=== PATIENT | female | born 1990 | race Caucasian/White ===

== ENCOUNTER 2017-03-08 16:28 | Inpatient (IN) | payer BC ==
[2017-03-08 16:56] VITALS: BMI 29.5
[2017-03-08] MEDS: Lactated Ringer's 1,000 ML IV SCH (17:00)
[2017-03-08 17:37] VITALS: BP 123/76; PULSE 102; RESP 18; TEMP 98.3
--- NOTE | 2017-03-08 18:57 | OBADHP ---
Datetime: 03/08/2017 17:53 Admit Comment, IP Provider: iup at 36+weeks uneventful care admitted with jose angel of 2 no evidence of ru ptured membrane will insert cervidil to help stat contraction Pelvic Type - PN: Adequate Extremities - PN: Normal Abdomen - PN: Normal Back - PN: Normal Breast - PN: Normal Lungs - PN: Normal Heart - PN: Normal Thyroid - PN: Normal Neurologic - PN: Normal HEENT - PN: Normal General - PN: Normal Presentation-Admit: Vertex FHR - Baseline A Provider: 150 Membranes, Provider: Intact Contraction Comments Provider: irregular (Annotations: Data stored by CPN on behalf of user) Gestation - Est Wks by US: 36+ Vital Signs Provider: Reviewed; Within Normal Limits NICHD Variability Prov Fetus A: Moderate 6-25bpm NICHD Accel Fetus A IP Provider: 10X10 FHR Category Provider Fetus A: Category I NICHD Decel Fetus A IP Provider: None Dilatation, Provider: closed Effacement, Provider: long Station, Provider: -3 Genitourinary Exam: Normal DTRs - PN: Normal IP Adm Impression: , intrauterine ; No Active Labor; Intact Membranes IP Admit Plan: Admit to unit; Initiate labor induction protocol
[2017-03-08 19:25] LABS: BASO # 0.1 K/uL (0.0-0.2); BASO % 0.5 % (0.0-2.0); EOS # 0.4 K/uL (0.0-0.7); EOS % 3.5 % (0.0-4.0); HEMATOCRIT 35.7 % (34.0-47.0); LYMPH % 18.9 % (20.0-40.0); MEAN CELL VOLUME 84.5 fl (81.0-99.0); MEAN CORPUSCULAR HGB CONC 33.1 g/dL (33.0-37.0); MONO % 9.4 % (0.0-10.0); NEUT # 7.2 K/uL (1.8-7.0); NEUT % 67.7 % (50.0-75.0); NRBC % 0.1 % (0.0-0.0); RED CELL DISTRIBUTION WIDTH 13.9 % (11.5-14.5); WHITE BLOOD COUNT 10.7 K/uL (4.8-10.8)
[2017-03-08] MEDS ORDERED: Ampicillin 2 GM in Sodium Chloride 0.9% 100 ML IVPB ONE (23:05)
[2017-03-09] MEDS ORDERED: Fentanyl/Bupivacaine HCl 250 ML EPI ONE (00:34)
[2017-03-09] MEDS: Lactated Ringer's 1,000 ML IV SCH ×2 (06:34→08:03)
[2017-03-09] MEDS ORDERED: Penicillin G 5 Million Unit Vial IVPB ONE (07:44)
[2017-03-09] MEDS ORDERED: Penicillin G Potassium 5 MU in Sodium Chloride 0.9% 50 ML IVPB ONE (07:45)
[2017-03-09] MEDS ORDERED: Oxytocin 30 units/LR 500ML 30 U/500 ML BAG IV ONE ×2 (12:02→12:21)
[2017-03-09] MEDS ORDERED: AMPicillin 1 GM in Sodium Chloride 0.9% 100 ML IVPB SCH (12:05)
[2017-03-09] MEDS ORDERED: Oxytocin 30 units/LR 500ML 30 U/500 ML BAG IV SCH (12:20)
[2017-03-09] MEDS ORDERED: Oxycodone/Acetaminophen 5/325 mg Tab PO PRN ×2 (14:21)
--- NOTE | 2017-03-09 14:32 | OBDS ---
DELIVERY PERSONNEL Delivery Doctor: Ashley Trujillo MD Intelligence Agent: Trei Schmidt RN Anesthesiologist: Talita Nicholson MD MATERNAL INFORMATION Delivery Anesthesia: Epidural Medications in Delivery: pitocin in labor and after placenta Estimated Blood Loss (ml): 250 Placenta Cultured: No Maternal Complications: None; Other Other Maternal Complications: oligo jose angel 2 Provider Comments: delivery oflive baby girl 9/9 clear fluid 1loose nuchal cord midline episio sandra and repair LABOR SUMMARY EDC: 04/03/2017 00:00 No. Babies in Womb: 1 Attempted: No Labor Anesthesia: Epidural LABOR INFORMATION Reason for Induction: Oligohydramnios Onset of Labor: 03/09/2017 12:00 Complete Dilatation: 03/09/2017 07:30 Cervical Ripening Agents: Cervidil (Annotations: cervidil inserted by dr trujillo) Oxytocin: cervidi/ pitocin Group B Beta Strep: Not Done Antibiotics # of Doses: michael 5m at 0755am pen. g 2.5 12:10 pm Steroids Given: None Reason Steroids Not Administered: Not Applicable MEMBRANES Membranes Rupture Method: Spontaneous Rupture of Membranes: 03/09/2017 08:30 Length of Rupture (hrs): 4.85 Amniotic Fluid Color: Clear Amniotic Fluid Amount: Small Amniotic Fluid Odor: Normal STAGES OF LABOR Stage 1 hrs: -4 Stage 1 min: -30 Stage 2 hrs: 5 Stage 2 min: 51 Stage 3 hrs: 0 Stage 3 min: 4 Total Time in Labor hrs: 1 Total Time in Labor min: 25 VAGINAL DELIVERY Episiotomy: Median Laceration Extension: Third Degree Laceration Type: Perineal Laceration Repair: Yes Laceration Repair Note: repair of midline episiotomy with 2-0 chromic Initial Vag Sponge Count: 15 Final Vag Sponge Count: 15 (Annotations: Data stored by N on behalf of user) Initial Vag Sharps Count: 3 Final Vag Sharps Count: 3 Sharps Count Correct: Yes Count Comment: yes BABY A INFORMATION Infant Delivery Date/Time: 03/09/2017 13:21 Method of Delivery: Vaginal Born in Route : Yes : N/A Forceps: N/A Vacuum Extraction: N/A Shoulder Dystocia : No SHOULDER DYSTOCIA BABY A Infant Delivery Date/Time: 03/09/2017 13:21 PRESENTATION/POSITION BABY A Presentation: Cephalic Cephalic Presentation: Vertex Vertex Position: Left Occipital Anterior Breech Presentation: N/A PLACENTA INFORMATION BABY A Placenta Delivery Time : 03/09/2017 13:25 Placenta Method of Delivery: Spontaneous Placenta Status: Delivered SCORES BABY A Heart Rate 1 min: >100 bpm Resp Effort 1 min: Good Cry Reflex Irritability 1 min: Cough or Sneeze or Pulls Away Muscle Tone 1 min: Active Motion Color 1 min: Body Dish, Extremities Blue SCORE 1 MIN: 9 Heart Rate 5 min: >100 bpm Resp Effort 5 min: Good Cry Reflex Irritability 5 min: Cough or Sneeze or Pulls Away Muscle Tone 5 min: Active Motion Color 5 min: Body Dish, Extremities Blue SCORE 5 MIN: 9 Heart Rate 10 min: >100 bpm Resp Effort 10 min: Good Cry Reflex Irritability 10 min: Cough or Sneeze or Pulls Away Muscle Tone 10 min: Active Motion Color 10 min: Completely Dish Resuscitation Effort 10 min: Tactile Stimulation SCORE 10 MIN: 10 INFORMATION BABY A Gestational Age at Delivery: 36+4 Gestational Status: Term Infant Outcome : Liveborn Condition : Stable Infant Sex: Female IDENTIFICATION/MEDS BABY A ID Band Number: [id number] WEIGHT/LENGTH BABY A Infant Birthweight (gms): 2535 Weight (lb): 5 Infant Weight (oz): 9 Length Inches: 19.00 Length cms: 48.3 CORD INFORMATION BABY A No. Cord Vessels: 3 Nuchal Cord : Around Neck x1, Loose Nuchal Cord Other: none True Knot: none Cord pH Baby Arterial: no Cord pH Baby Venous: no Cord Blood Taken: Yes Banking/Donate Info: none Infant Suction: Mouth; Nose ASSESSMENT BABY A Complications: Oligohydramnios Infant Complications Other: 36+4 weeks jose angel of 2 Physical Findings at Delivery: Within Normal Limits Respirations: Appears Normal Speech Language Pathology Assistant/ALS Called : Yes Infant Care By: dr juan pablo wilson Transferred To: Remains with Mother
[2017-03-09] MEDS ORDERED: Ammonia 2% Inhalant ONE (16:47)
[2017-03-09 20:38] LABS: BASO # 0.1 K/uL (0.0-0.2); BASO % 0.7 % (0.0-2.0); HEMATOCRIT 28.2 % (34.0-47.0); LYMPH # 1.3 K/uL (1.0-4.3); LYMPH % 6.9 % (20.0-40.0); MEAN CELL VOLUME 84.2 fl (81.0-99.0); MEAN CORPUSCULAR HEMOGLOBIN 27.1 pg (27.0-31.0); MEAN CORPUSCULAR HGB CONC 32.2 g/dL (33.0-37.0); MEAN PLATELET VOLUME 10.4 fl (7.2-11.7); MONO # 1.1 K/uL (0.0-0.8); MONO % 5.8 % (0.0-10.0); NEUT # 16.6 K/uL (1.8-7.0); NEUT % 86.6 % (50.0-75.0); PLATELET COUNT 175 K/uL (130-400); WHITE BLOOD COUNT 19.2 K/uL (4.8-10.8)
[2017-03-09 21:20] LABS: NEUTROPHIL 89 % (42-75); TOTAL CELLS COUNTED 100
[2017-03-09 21:22] LABS: LARGE PLATELETS PRESENT
[2017-03-09] MEDS ORDERED: Benzocaine/Menthol SPRAY ONE (23:08)
[2017-03-10 07:35] LABS: BASO # 0.1 K/uL (0.0-0.2); BASO % 0.3 % (0.0-2.0); EOS # 0.2 K/uL (0.0-0.7); EOS % 1.3 % (0.0-4.0); HEMATOCRIT 28.8 % (34.0-47.0); LYMPH # 2.6 K/uL (1.0-4.3); LYMPH % 14.7 % (20.0-40.0); MEAN CELL VOLUME 84.9 fl (81.0-99.0); MEAN CORPUSCULAR HEMOGLOBIN 27.9 pg (27.0-31.0); MEAN CORPUSCULAR HGB CONC 32.9 g/dL (33.0-37.0); MEAN PLATELET VOLUME 10.2 fl (7.2-11.7); MONO # 1.4 K/uL (0.0-0.8); MONO % 7.8 % (0.0-10.0); NEUT # 13.3 K/uL (1.8-7.0); NEUT % 75.9 % (50.0-75.0); RED CELL DISTRIBUTION WIDTH 13.7 % (11.5-14.5); WHITE BLOOD COUNT 17.6 K/uL (4.8-10.8)
[2017-03-10] MEDS: Prenatal Multivit/Folic Acid/Iron Tab PO SCH (08:24)
--- NOTE | 2017-03-10 10:40 | OBPPN ---
Datetime: 03/10/2017 10:37 PP Pain Prov: Within normal limits PP Pain Prov comment: no SOB, chest pains or leg pains PP Nausea Prov: Denies PP Flatus Prov: Yes PP Nausea Prov comment: voiding well PP Flatus Prov comment: no dizziness PP Breasts Prov: Normal PP Lungs Prov: Normal PP Abdomen/Uterus Prov: Abnormal PP Lochia Prov: Normal PP CVA Tenderness Prov: Normal PP Extremities Prov: Normal PP C/S Incision Prov: Not Applicable PP Progress Prov: Normal PP Comments Phys Exam Prov: Abd soft not distended depressible, fundus firm below the umb. NT, Ext no calf tenderness PP Impression Prov: Normal progression PP Plan Prov: Continue present management PP Progress Note Prov: CBC stable pt asympt now Continue po fluids and PP care IP PP Procedures: None
[2017-03-11] MEDS: Prenatal Multivit/Folic Acid/Iron Tab PO SCH (07:43)
--- NOTE | 2017-03-11 08:40 | OBPPN ---
Datetime: 03/11/2017 08:31 PP Pain Prov: Within normal limits PP Nausea Prov: Denies PP Flatus Prov: Yes PP Breasts Prov: Normal PP Heart Prov: Normal PP Lungs Prov: Normal PP Abdomen/Uterus Prov: Normal PP Lochia Prov: Normal PP Vulva/Perineum Prov: Normal PP CVA Tenderness Prov: Normal PP Extremities Prov: Normal PP Progress Prov: Normal PP Impression Prov: Normal progression PP Plan Prov: Continue present management PP Progress Note Prov: stable ppd2 continue present care dc home today IP PP Procedures: None Vital Signs Provider PP: Reviewed; Within Normal Limits
--- NOTE | 2017-03-11 08:44 | OBDCSUM ---
Datetime: 03/11/2017 08:39 Discharged to, Provider: Home Follow up at, Provider: Disch Instr Activity: May be up to bathroom; May be up for meals; May Shower Disch Instr Diet: Regular Discharge Instructions, Provider: Specific instructions as noted Discharge Diagnosis, Provider: Delivery Discharge Time: 03/11/2017 08:41 Follow up in weeks, Provider: 5-6 weeks Disch Referrals: None Disch Activity Restrictions: No exercising; No lifting; No driving; Minimize walking; Minimize stair -climbing; No sexual activity; Nothing in vagina - [place], tampons, douche Discharge Comment, Provider: no complaints today rto 5-6 weeks call office if any problems Contraception after Delivery: Undecided
== END 2017-03-11 16:50 | disposition home or self-care (01) | DRG 775 ==
LOC: H.EROB2 16:28 → H.L&D 17:01 → H.OB/GYN 03-09 20:19
PROVIDERS: ADMIT Specialist; ATTEND Specialist
PROC: 4A1HXCZ Monitoring of Products of Conception, Cardiac Rate, External Approach (ICD-10-PCS; 2017-03-08)
PROC: 0W8NXZZ Division of Female Perineum, External Approach (ICD-10-PCS; principal; 2017-03-09)
PROC: 10E0XZZ Delivery of Products of Conception, External Approach (ICD-10-PCS; 2017-03-09)
PROC: 0DQR0ZZ Repair Anal Sphincter, Open Approach (ICD-10-PCS; 2017-03-09)
DX: O60.14X0 Preterm labor third trimester with preterm delivery third trimester, not applicable or unspecified (principal); O41.03X0 Oligohydramnios, third trimester, not applicable or unspecified; O70.20 Third degree perineal laceration during delivery, unspecified; O69.81X0 Labor and delivery complicated by cord around neck, without compression, not applicable or unspecified; Z37.0 Single live birth; Z3A.36 36 weeks gestation of pregnancy